=== PATIENT | male | born 1995 | race Caucasian/White ===

== ENCOUNTER 2017-09-28 20:28 | Emergency (ER) | payer OTHER ==
[~2017-09-28] VITALS: Ht 177.8 cm; Wt 65.8 kg
[2017-09-28 21:31] VITALS: BP 130/78
[2017-09-28] MEDS ORDERED: CLARITIN10 MG ORAL (21:49)
--- NOTE | 2017-09-28 21:50 | Emergency Room Report ---
History of Present Illness General Chief Complaint: Flu Like Symptoms Source: Patient Present Illness HPI Patient is a 22-year-old male presented after increased left sided earache and cough. Patient gradual onset of symptoms. The patient nonproductive cough. He reports having increased phlegm. Denies any fever. Patient having left- sided ear pain which is sharp in nature. He denied hearing loss. Allergies: Coded Allergies: No Known Allergies (Unverified , 09/28/17) Patient History Past Medical History: see triage record Reviewed Nursing Documentation: PMH: Agreed, PSxH: Agreed Review of Systems All Other Systems: negative except mentioned in HPI Physical Exam Vital Signs Date Time Temp Pulse Resp B/P (MAP) Pulse Ox O2 Delivery O2 Flow Rate FiO2 09/28/17 20:32 98.8 79 18 130/78 99 Room Air 98.8 General Appearance: well appearing, no apparent distress, alert, GCS 15 Head: normocephalic, atraumatic ENT: hearing grossly normal, normal voice Neck: full range of motion, supple Respiratory: no respiratory distress, speaking full sentences Cardiovascular #1: normal inspection, regular rate, rhythm Gastrointestinal: normal inspection Musculoskeletal: no calf tenderness Neurologic: normal inspection, alert, oriented x3, responsive, tower director III-XII nml as tested, normal gait Psychiatric: mood/affect normal Skin: no rash Medical Decision Making Diagnostic Impression: Primary Impression: Eustachian tube dysfunction ER Course Patient presented for ear pain. Differential diagnosis included was not limited to otitis media, malignant otitis externa, foreign body, cellulitis, mastoiditis, carotid dissection, myocardial infarction among others. Patient has a benign exam and does not appear to require any further imaging or laboratory testing at this time. The patient patient presented to eustachian tube dysfunction. The patient does not require antibiotics this time. The patient is advised to follow up with primary care doctor in 1-2 days. Patient is advised to return if any worsening condition or if any changes in status that are concerning. This report is dictated with [employer] rip machine operator software which may occasionally lead to discrepancies related to use of this software. Last Vital Signs Date Time Temp Pulse Resp B/P (MAP) Pulse Ox O2 Delivery O2 Flow Rate FiO2 09/28/17 21:31 98.8 79 18 130/78 99 Room Air 98.8 Status: improved Disposition: ELOPED Condition: Stable Scripts Loratadine (CLARITIN) 10 Mg Tablet 10 MG ORAL DAILY, #30 TAB Prov: Hamlet Avila 09/28/17 Patient Instructions: Earache Hamlet Avila Sep 28, 2017 21:50
[2017-09-28 21:55] VITALS: BP 130/78
== END 2017-09-28 21:55 | disposition home or self-care (01) ==
LOC: EMR 20:50
DX: H69.92 Unspecified Eustachian tube disorder, left ear (principal)
CPT/HCPCS: 99283